=== PATIENT | female | born 1990 | race Caucasian/White ===

== ENCOUNTER → 2021-12-03 | Outpatient (CLI) | payer OTHER ==
--- NOTE | 2021-12-03 15:19 | US ---
EXAMINATION TYPE: US venous doppler duplex LE DATE OF EXAM: 12/03/2021 2:53 PM COMPARISON: NONE CLINICAL HISTORY: R60.0 Localized edema. patient, red, hot legs that are swollen, patient states body hurts all over SIDE PERFORMED: Bilateral TECHNIQUE: The lower extremity deep venous system is examined utilizing real time linear array sonog ananth with graded compression, doppler sonography and color-flow sonography. VESSELS IMAGED: Common Femoral Vein Deep Femoral Vein Greater Saphenous Vein * Femoral Vein Popliteal Vein Small Saphenous Vein * Proximal Calf Veins (* superficial vessels) Right Leg: Negative for DVT Left Leg: Negative for DVT IMPRESSION: 1. Bilateral lower extremity ultrasound negative for spondylosis.
--- NOTE | 2021-12-04 07:05 | CT ---
EXAMINATION TYPE: CT angio chest DATE OF EXAM: 12/03/2021 COMPARISON: NONE HISTORY: Dyspnea, edema in lower extremities CT DLP: 635 mGycm. Automated Exposure Control for Dose Reduction was Utilized. CONTRAST: CTA scan of the thorax is performed with IV Contrast, patient injected with 100 mL of Isovue 370, pul monary embolism protocol. MIP Images are created on CT scanner and reviewed. FINDINGS: LUNGS: The lungs are grossly clear, there is no concerning parenchymal mass or nodule identified. T here is no pleural effusion or pneumothorax seen. The tracheobronchial tree is patent. MEDIASTINUM: Suboptimal study with most dense contrast in the SVC. Opacified aorta without aneurysm o r dissection. Suboptimal bolus but no convincing CT evidence for acute pulmonary embolism. No cardiom egaly or pericardial effusion is seen. Abnormal thoracic adenopathy. Prominent bilateral low dense hi lar lymph nodes. For reference series 2.5 x 1.4 cm right hilar lymph node axial image 65. Prominent b ut subcentimeter prevascular lymph nodes. Soft tissue density anterior superior mediastinum is consis tent with residual thymus tissue. OTHER: No additional significant abnormality is seen. IMPRESSION: No CT evidence for acute pulmonary embolism. No significant acute or chronic pulmonary pa renchymal process. Bilateral hilar adenopathy is present. This is nonspecific finding may be seen in granulomatous diseases, sarcoidosis, etc. Correlate clinically.
== END | disposition home or self-care (01) ==
LOC: RADUSWWP 13:44
PROVIDERS: ATTEND Obstetrics & Gynecology
DX: R60.0 Localized edema (principal); R06.00 Dyspnea, unspecified
CPT/HCPCS: 93970; 71275; Q9967

== ENCOUNTER → 2022-01-02 | Outpatient (CLI) | payer OTHER ==
--- NOTE | 2022-01-02 15:31 | CT ---
EXAMINATION TYPE: CT abdomen pelvis wo con DATE OF EXAM: 01/02/2022 COMPARISON: None HISTORY: 31-year-old female R22.43, bilateral leg swelling CT DLP: 1159.7 mGycm. Automated exposure control for dose reduction was used. TECHNIQUE: Contiguous axial scanning of the abdomen and pelvis without IV contrast. Coronal and sagit joel reconstructions performed. FINDINGS: Heart normal size without pericardial effusion. Lung bases clear without pleural effusion. Liver enlarged at 21.4 cm craniocaudal. Otherwise, noncontrast appearance of the liver, gallbladder, adrenal glands, and pancreas show no gross abnormality. The spleen is borderline enlarged at 13.9 cm measured on axial series. Kidneys show no nephrolithiasis or hydronephrosis. No dilated small bowel, free fluid, or free air. No mesenteric or retroperitoneal lymphadenopathy. Appendix not clearly identified. Moderate stool burden. No pericolonic inflammatory change. Bladder urine distended. Uterus anteverted. A tampon is present. Both ovaries are visualized. No abno rmal fluid collection the pelvis or pelvic lymphadenopathy. Bones: No osseous destructive process. IMPRESSION: 1. Hepatomegaly (21.4 cm). Clinically correlate. 2. Moderate stool burden. 3. No discrete abnormality identified to account for the patient's bilateral lower extremity swellin g.
== END | disposition home or self-care (01) ==
LOC: RADCTMAIN 11:57
PROVIDERS: ATTEND Family Medicine
DX: R22.43 Localized swelling, mass and lump, lower limb, bilateral (principal)
CPT/HCPCS: 74176

== ENCOUNTER → 2022-01-16 | Outpatient (CLI) | payer OTHER ==
[2022-01-16 14:55] LABS: African American GFR (CKD) 126.9 (60.0-200.0); Albumin 4.1 g/dL (3.8-4.9); Albumin/Globulin Ratio 1.66 (1.60-3.17); Anion Gap 10.8 mmol/L (10.00-18.00); BUN/Creat Ratio 18.71 Ratio (12.00-20.00); Blood Urea Nitrogen 13.6 mg/dL (9.0-27.0); C Reactive Protein 0.7 mg/dL (0.00-0.80); Calcium 9.5 mg/dL (8.7-10.3); Globulin 2.5 g/dL (1.6-3.3); Non-African American GFR(CKD) 109.5 (60.0-200.0); Total Bilirubin 0.3 mg/dL (0.30-1.20); Total Protein 6.6 g/dL (6.2-8.2)
== END | disposition home or self-care (01) ==
LOC: LABWHC1 09:32
PROVIDERS: ATTEND Internal Medicine Critical Care Medicine
DX: D86.9 Sarcoidosis, unspecified (principal)
CPT/HCPCS: 36415; 80053; 82164; 85652; 86140

== ENCOUNTER 2022-01-17 16:38 | Emergency (ER) | payer OTHER ==
[2022-01-17 17:45] VITALS: BP 133/75; PULSE 59; RESP 16; TEMP 98.2
--- NOTE | 2022-01-17 17:49 | ED ---
General Adult HPI - General Chief complaint: Extremity Problem,Nontraumatic Stated complaint: L knee pain Time Seen by Provider: 01/17/22 17:45 Source: patient, RN notes reviewed, old records reviewed Mode of arrival: ambulatory Limitations: no limitations - History of Present Illness Initial comments: 31-year-old female presenting with left knee pain. She states the pain is been present for several weeks and has been bilateral mostly but over the past 3 days and worse in the left leg. She's had pain behind her left knee as well. No fever. No injury. - Related Data Previous Rx's Medication Instructions Recorded Clindamycin [Cleocin] 450 mg PO Q8H 10 Days #90 cap 12/04/21 Erythromycin Ophth Oint [Romycin 1 applic LEFT EYE QID #3.5 gm 12/04/21 Ophth Oint] Naproxen [EC-Naproxen] 500 mg PO BID PRN 10 Days #20 tab 01/17/22 Allergies Allergy/AdvReac Type Severity Reaction Status Date / Time Penicillins Allergy Unknown Verified 01/17/22 17:45 Review of Systems ROS Statement: Those systems with pertinent positive or pertinent negative responses have been documented in the HPI. ROS Other: All systems not noted in ROS Statement are negative. Past Medical History Past Medical History: No Reported History History of Any Multi-Drug Resistant Organisms: None Reported Past Surgical History: No Surgical Hx Reported Past Psychological History: No Psychological Hx Reported Smoking Status: Current every day smoker Past Alcohol Use History: None Reported Past Drug Use History: Opiates General Exam Limitations: no limitations General appearance: alert, in no apparent distress Head exam: Present: atraumatic, normocephalic Eye exam: Present: normal appearance, PERRL ENT exam: Present: normal exam Neck exam: Present: normal inspection Respiratory exam: Present: normal lung sounds bilaterally. Absent: respiratory distress Cardiovascular Exam: Present: regular rate, normal rhythm GI/Abdominal exam: Present: soft. Absent: distended, tenderness, guarding Extremities exam: Present: joint swelling (Small joint effusion on exam, no erythema, no warmth, normal range of motion.) Back exam: Present: normal inspection Neurological exam: Present: alert, oriented X3, CN II-XII intact, normal gait, motor sensory deficit Course Vital Signs 01/17/22 17:43 Temperature 98.2 F Pulse Rate 59 L Respiratory 16 Rate Blood Pressure 133/75 O2 Sat by Pulse 100 Oximetry Medical Decision Making - Medical Decision Making 31-year-old female with left knee pain. She had some bilateral pain but definitely worse on the left. X-ray negative for fracture dislocation, I did p erform an ultrasound because there was some pain behind the knee. This is negative for DVT. Patient is being worked up as an outpatient for multiple issues. She had previous laboratory testing which showed a mildly elevated ESR. I did discuss the possibility of further workup as an outpatient. She states that naproxen had worked well for her pain. I will prescribe naproxen at this time. Return parameters were discussed. Disposition Clinical Impression: Knee pain, left Disposition: HOME SELF-CARE Condition: Good Instructions (If sedation given, give patient instructions): Knee Pain (ED) Prescriptions: Naproxen [EC-Naproxen] 500 mg PO BID PRN 10 Days #20 tab PRN Reason: Pain Is patient prescribed a controlled substance at d/c from ED?: No Referrals: Mercy Prater MD [Primary Care Provider] - 1-2 days Juany Hill MD [STAFF PHYSICIAN] - 1-2 days Time of Disposition: 19:25
--- NOTE | 2022-01-17 18:14 | XR ---
EXAMINATION TYPE: XR knee complete LT DATE OF EXAM: 01/17/2022 COMPARISON: NONE HISTORY: Pain and swelling TECHNIQUE: 3 views FINDINGS: I see no fracture nor dislocation. Joint spaces are normal. No sign of knee joint effusion IMPRESSION: Negative left knee exam. No fracture.
--- NOTE | 2022-01-17 18:46 | US ---
EXAMINATION TYPE: US venous doppler duplex LE LT DATE OF EXAM: 01/17/2022 6:35 PM COMPARISON: NONE CLINICAL HISTORY: pain/swelling. pain and edema left leg for 3 months. pain left knee for a few days SIDE PERFORMED: left TECHNIQUE: The lower extremity deep venous system is examined utilizing real time linear array sonog ananth with graded compression, doppler sonography and color-flow sonography. VESSELS IMAGED: Common Femoral Vein Deep Femoral Vein Greater Saphenous Vein * Femoral Vein Popliteal Vein Small Saphenous Vein * Proximal Calf Veins (* superficial vessels) Left Leg: no evidence of DVT IMPRESSION: No site of the vein thrombosis in the left leg.
== END 2022-01-17 19:40 | disposition home or self-care (01) ==
LOC: EC 16:38
DX: M25.562 Pain in left knee (principal); F17.200 Nicotine dependence, unspecified, uncomplicated; Z88.0 Allergy status to penicillin
CPT/HCPCS: 99284

== ENCOUNTER → 2022-02-24 | Outpatient (CLI) | payer OTHER ==
--- NOTE | 2022-02-24 17:35 | CA ---
Transthoracic Echo Report Name: Sophia Denis Age: 31 Gender: F : 1990 Exam Date: 02/24/2022 15:03 Exam Location: [facility] Ht (in): 63 Wt (lb): 220 Ordering Physician: Mercy Prater MD Attending/Referring Phys: Flight Mechanic Irma Jenkins RDCS Procedure CPT: Indications: R22.43 SWELLING, MASS AND LUMP, LOWER LIMB Cardiac Hx: Technical Quality: Fair Contrast 1: Total Dose (mL): Contrast 2: Total Dose (mL): MEASUREMENTS (Male / Female) Normal Values 2D ECHO LV Diastolic Diameter PLAX 5.0 cm 4.2 - 5.9 / 3.9 - 5.3 cm LV Systolic Diameter PLAX 2.9 cm IVS Diastolic Thickness 1.2 cm 0.6 - 1.0 / 0.6 - 0.9 cm LVPW Diastolic Thickness 1.2 cm 0.6 - 1.0 / 0.6 - 0.9 cm LV Relative Wall Thickness 0.5 RV Internal Dim ED PLAX 3.6 cm LA Volume 60.9 cm??? 18 - 58 / 22 - 52 cm??? M-MODE Aortic Root Diameter MM 2.8 cm LA Systolic Diameter MM 4.1 cm LA Ao Ratio MM 1.4 AV Cusp Separation MM 2.0 cm DOPPLER AV Peak Velocity 155.5 cm/s AV Peak Gradient 9.7 mmHg LVOT Peak Velocity 101.2 cm/s LVOT Peak Gradient 4.1 mmHg MV Area PHT 3.3 cm??? Mitral E Point Velocity 119.8 cm/s Mitral A Point Velocity 91.2 cm/s Mitral E to A Ratio 1.3 MV Deceleration Time 231.9 ms MV E' Velocity 9.6 cm/s Mitral E to MV E' Ratio 12.4 FINDINGS Left Ventricle Mildly increased left ventricular wall thickness. Normal left ventricular systolic function with no obvious regional wall motion abnormalities. Left ventricular ejection fraction is estimated at 55-60 %. Normal left ventricular diastolic filling pattern. Right Ventricle Normal right ventricular size and function. Right ventricular systolic pressure within normal limits. Right Atrium Normal right atrial size. Left Atrium Left atrial size at the upper limits of normal. No evidence for an atrial septal defect. Mitral Valve Structurally normal mitral valve. No mitral stenosis, regurgitation or prolapse. Aortic Valve No aortic valve stenosis or regurgitation. Tricuspid Valve Structurally normal tricuspid valve. Mild tricuspid regurgitation. Pulmonic Valve Trace pulmonic regurgitation. Pericardium No pericardial effusion. Aorta Normal size aortic root and proximal ascending aorta. CONCLUSIONS Normal LV systolic function Previewed by: Dr. Bruce Espinoza MD (Electronically Signed) Final Date: 24 February 2022 17:34
== END | disposition home or self-care (01) ==
LOC: RADECHMAIN 14:50
PROVIDERS: ATTEND Family Medicine
DX: R22.43 Localized swelling, mass and lump, lower limb, bilateral (principal)
CPT/HCPCS: 93306

== ENCOUNTER 2023-10-12 17:54 | Emergency (ER) | payer OTHER ==
--- NOTE | 2023-10-12 18:40 | ED ---
General Adult HPI - General Chief complaint: Vaginal Bleeding Stated complaint: 6-8wk Preg, Vaginal Bleeding Time Seen by Provider: 10/12/23 18:37 Source: patient Mode of arrival: ambulatory Limitations: no limitations - History of Present Illness Initial comments: Quick note: 33-year-old G3, P2 female presents to the emergency department for evaluation of vaginal bleeding in . Patient states that she believes she is around 6 to 8 weeks . Last menstrual period 09-01-2023. She notes that she had passed a blood clot yesterday and the bleeding has been lessened since then. She denies any abdominal pain or cramping. - Related Data Previous Rx's Medication Instructions Recorded Clindamycin [Cleocin] 450 mg PO Q8H 10 Days #90 cap 12/04/21 Erythromycin Ophth Oint [Romycin 1 applic LEFT EYE QID #3.5 gm 12/04/21 Ophth Oint] Naproxen [EC-Naproxen] 500 mg PO BID PRN 10 Days #20 tab 01/17/22 Allergies Allergy/AdvReac Type Severity Reaction Status Date / Time Penicillins Allergy Unknown Verified 01/17/22 17:45 Review of Systems ROS Statement: Those systems with pertinent positive or pertinent negative responses have been documented in the HPI. ROS Other: All systems not noted in ROS Statement are negative. Past Medical History Past Medical History: No Reported History History of Any Multi-Drug Resistant Organisms: None Reported Past Surgical History: No Surgical Hx Reported Past Psychological History: No Psychological Hx Reported Smoking Status: Current every day smoker Past Alcohol Use History: None Reported Past Drug Use History: Opiates General Exam - General Exam Comments Initial Comments: Visual Physical Exam Vital signs reviewed General: Well-appearing, nontoxic, no acute distress. Head: Normocephalic, atraumatic Eyes: PERRLA, EOMI ENT: Airway patent Chest: Nonlabored breathing Skin: No visual rash, normal skin tone Neuro: Alert and oriented 3 Musculoskeletal: No gross abnormalities Limitations: no limitations Course Vital Signs 10/12/23 18:29 Temperature 98.1 F Pulse Rate 63 Respiratory 20 Rate Blood Pressure 150/87 O2 Sat by Pulse 100 Oximetry Medical Decision Making - Medical Decision Making Quick note preformed and electronically by Ny Jones PA-C Patient left AMA from the waiting room - Lab Data Result diagrams: 10/12/23 18:50 10/12/23 18:50 Lab Results 10/12/23 10/12/23 10/12/23 Range/Units 18:50 18:50 18:50 WBC 8.1 (3.8-10.6) k/uL RBC 4.30 (3.80-5.40) m/uL Hgb 11.8 (11.4-16.0) gm/dL Hct 35.2 (34.0-46.0) % MCV 81.8 (80.0-100.0) fL MCH 27.4 (25.0-35.0) pg MCHC 33.5 (31.0-37.0) g/dL RDW 14.2 (11.5-15.5) % Plt Count 328 (150-450) k/uL MPV 7.2 Neutrophils % 56 % Lymphocytes % 35 % Monocytes % 6 % Eosinophils % 1 % Basophils % 1 % Neutrophils # 4.6 (1.3-7.7) k/uL Lymphocytes # 2.8 (1.0-4.8) k/uL Monocytes # 0.5 (0-1.0) k/uL Eosinophils # 0.1 (0-0.7) k/uL Basophils # 0.1 (0-0.2) k/uL Sodium 139 (137-145) mmol/L Potassium 4.1 (3.5-5.1) mmol/L Chloride 106 (98-107) mmol/L Carbon Dioxide 23 (22-30) mmol/L Anion Gap 10 mmol/L BUN 10 (7-17) mg/dL Creatinine 0.66 (0.52-1.04) mg/dL Est GFR (CKD-EPI)AfAm >90 (>60 ml/min/1.73 sqM) Est GFR (CKD-EPI)NonAf >90 (>60 ml/min/1.73 sqM) Glucose 73 L (74-99) mg/dL Calcium 9.2 (8.4-10.2) mg/dL Total Bilirubin 0.6 (0.2-1.3) mg/dL AST 17 (14-36) U/L ALT 8 (4-34) U/L Alkaline Phosphatase 63 (38-126) U/L Total Protein 7.1 (6.3-8.2) g/dL Albumin 4.2 (3.5-5.0) g/dL HCG, Quant 22940.0 mIU/mL Urine Color Urine Appearance (Clear) Urine pH (5.0-8.0) Ur Specific [place] (1.001-1.035) Urine Protein (Negative) Urine Glucose (UA) (Negative) Urine Ketones (Negative) Urine Blood (Negative) Urine Nitrite (Negative) Urine Bilirubin (Negative) Urine Urobilinogen (<2.0) mg/dL Ur Leukocyte Esterase (Negative) Urine RBC (0-5) /hpf Urine WBC (0-5) /hpf Ur Squamous Epith Cells (0-4) /hpf Urine Bacteria (None) /hpf Urine Mucus (None) /hpf Blood Type A Positive Blood Type Confirm Blood Type Recheck No Previous Record Bld Type Recheck Status CABO Indicated 10/12/23 10/12/23 Range/Units 19:00 20:56 WBC (3.8-10.6) k/uL RBC (3.80-5.40) m/uL Hgb (11.4-16.0) gm/dL Hct (34.0-46.0) % MCV (80.0-100.0) fL MCH (25.0-35.0) pg MCHC (31.0-37.0) g/dL RDW (11.5-15.5) % Plt Count (150-450) k/uL MPV Neutrophils % % Lymphocytes % % Monocytes % % Eosinophils % % Basophils % % Neutrophils # (1.3-7.7) k/uL Lymphocytes # (1.0-4.8) k/uL Monocytes # (0-1.0) k/uL Eosinophils # (0-0.7) k/uL Basophils # (0-0.2) k/uL Sodium (137-145) mmol/L Potassium (3.5-5.1) mmol/L Chloride (98-107) mmol/L Carbon Dioxide (22-30) mmol/L Anion Gap mmol/L BUN (7-17) mg/dL Creatinine (0.52-1.04) mg/dL Est GFR (CKD-EPI)AfAm (>60 ml/min/1.73 sqM) Est GFR (CKD-EPI)NonAf (>60 ml/min/1.73 sqM) Glucose (74-99) mg/dL Calcium (8.4-10.2) mg/dL Total Bilirubin (0.2-1.3) mg/dL AST (14-36) U/L ALT (4-34) U/L Alkaline Phosphatase (38-126) U/L Total Protein (6.3-8.2) g/dL Albumin (3.5-5.0) g/dL HCG, Quant mIU/mL Urine Color Yellow Urine Appearance Cloudy H (Clear) Urine pH 5.5 (5.0-8.0) Ur Specific [place] 1.032 (1.001-1.035) Urine Protein Trace H (Negative) Urine Glucose (UA) Negative (Negative) Urine Ketones Negative (Negative) Urine Blood Large H (Negative) Urine Nitrite Negative (Negative) Urine Bilirubin Negative (Negative) Urine Urobilinogen <2.0 (<2.0) mg/dL Ur Leukocyte Esterase Large H (Negative) Urine RBC 3 (0-5) /hpf Urine WBC 15 H (0-5) /hpf Ur Squamous Epith Cells 19 H (0-4) /hpf Urine Bacteria Rare H (None) /hpf Urine Mucus Moderate H (None) /hpf Blood Type Blood Type Confirm A Positive Blood Type Recheck Bld Type Recheck Status Disposition Clinical Impression: Left against medical advice Disposition: LEFT AGAINST MEDICAL ADVICE Is patient prescribed a controlled substance at d/c from ED?: No Referrals: Mercy Prater MD [Primary Care Provider] - 1-2 days
[2023-10-12 18:46] VITALS: BP 150/87; PULSE 63; RESP 20; TEMP 98.1
[2023-10-12 19:17] LABS: Basophils # (A) 0.1 k/uL (0-0.2); Basophils % (A) 1 %; Eosinophils # (A) 0.1 k/uL (0-0.7); Eosinophils % (A) 1 %; HCT 35.2 % (34.0-46.0); HGB 11.8 gm/dL (11.4-16.0); Lymphocytes # (A) 2.8 k/uL (1.0-4.8); Lymphocytes % (A) 35 %; MCH 27.4 pg (25.0-35.0); MCHC 33.5 g/dL (31.0-37.0); MCV 81.8 fL (80.0-100.0); Mean Platelet Volume 7.2; Monocytes # (A) 0.5 k/uL (0-1.0); Monocytes % (A) 6 %; Neutrophils # (A) 4.6 k/uL (1.3-7.7); Neutrophils % (A) 56 %; Platelet Count 328 k/uL (150-450); RDW 14.2 % (11.5-15.5); WBC 8.1 k/uL (3.8-10.6)
[2023-10-12 20:00] LABS: ALT 8 U/L (4-34); AST 17 U/L (14-36); African American GFR (CKD) >90 (>60 ml/min/1.73 sqM); Albumin 4.2 g/dL (3.5-5.0); Alkaline Phosphatase 63 U/L (38-126); Anion Gap 10 mmol/L; Blood Urea Nitrogen 10 mg/dL (7-17); Calcium 9.2 mg/dL (8.4-10.2); Carbon Dioxide 23 mmol/L (22-30); Chloride 106 mmol/L (98-107); Glucose 73 mg/dL (74-99); Non-African American GFR(CKD) >90 (>60 ml/min/1.73 sqM); Potassium 4.1 mmol/L (3.5-5.1); Sodium 139 mmol/L (137-145); Total Bilirubin 0.6 mg/dL (0.2-1.3); Total Protein 7.1 g/dL (6.3-8.2)
--- NOTE | 2023-10-12 20:42 | US ---
EXAMINATION TYPE: Transabdominal DATE OF EXAM: 10/12/2023 7:21 PM COMPARISON: NONE CLINICAL INDICATION: Female, 33 years old with history of bleeding, 7 weeks; A1. Hx of ectopic ye ars ago. Pt states she passed a clot today EXAM PERFORMED: Transabdominal (TA) EXAM MEASUREMENTS: GESTATIONAL AGE / DATING Physician Established: Not yet established Dates by LMP: (5 weeks/1 days) EDC: 06/12/24 Dates by First Scan: No previous this is first scan Dates by Current Scan for: (6 weeks/1 days) EDC: 06/05/24 MATERNAL ANATOMY Uterus: 10.4 x 6.9 x 5.3cm Right Ovary: 3.8 x 2.6 x 2.9cm Left Ovary: 2.4 x 2.4 x 2.2cm Post CDS / Adnexa: wnl Presence of free fluid: No Presence of corpus luteal cyst: Yes in rt ov measuring 2.5 x 2.6 x 2.2cm Presence of subchorionic bleed: No GESTATION / SURVEY CRL: 0.44cm (6 weeks/1 days) MSD: 1.75cm (6 weeks/1 days) Yolk Sac (normal less than 6mm): 3.2mm Heart Rate: 120 bpm Rhythm: Normal IUP: Viable IUP Date of LMP: Pt states around 09/06/23 Beta HcG (if available): Pending IMPRESSION: Single live intrauterine gestation ultrasound age 6 weeks 1 day.
[2023-10-12 21:10] LABS: Appearance,Urine Cloudy (Clear); Bacteria,Urine Rare /hpf; Bilirubin,Urine Negative (Negative); Blood,Urine Large (Negative); Color,Urine Yellow; Glucose,Urine (UA) Negative (Negative); Ketones,Urine Negative (Negative); Leukocyte Esterase,Urine Large (Negative); Mucus,Urine Moderate /hpf; Nitrite,Urine Negative (Negative); PH, Urine 5.5 (5.0-8.0); Protein,Urine Trace (Negative); RBC,Urine 3 /hpf (0-5); Specific Gravity,Urine 1.032 (1.001-1.035); Squamous Epithelial Cell,Urine 19 /hpf (0-4); Urobilinogen,Urine <2.0 mg/dL (<2.0); WBC,Urine 15 /hpf (0-5)
== END 2023-10-12 21:39 | disposition left against medical advice (07) ==
LOC: EC 17:54
DX: O20.9 Hemorrhage in early pregnancy, unspecified (principal); O23.41 Unspecified infection of urinary tract in pregnancy, first trimester; B96.20 Unspecified Escherichia coli [E. coli] as the cause of diseases classified elsewhere; B96.1 Klebsiella pneumoniae [K. pneumoniae] as the cause of diseases classified elsewhere; O99.331 Smoking (tobacco) complicating pregnancy, first trimester; F17.200 Nicotine dependence, unspecified, uncomplicated; Z53.29 Procedure and treatment not carried out because of patient's decision for other reasons; Z3A.01 Less than 8 weeks gestation of pregnancy; Z88.0 Allergy status to penicillin
CPT/HCPCS: 36415; 76801; 80053; 81001; 84702; 85025; 86900; 86901; 87077; 87086; 87186; 99284

== ENCOUNTER 2023-10-17 18:15 | Emergency (ER) | payer OTHER ==
[2023-10-17 18:53] VITALS: TEMP 98.4
[2023-10-17] MEDS: AZITHROMYCIN 250 MG TAB PO STA (19:28)
[2023-10-17] MEDS: metroNIDAZOLE 500 MG TAB PO STA (19:29)
[2023-10-17] MEDS: cefTRIAXone 1,000 MG VIAL (IM USE) IM STA (19:30)
--- NOTE | 2023-10-17 20:01 | ED ---
Female Urogenital HPI - General Chief complaint: Vaginal Bleeding Stated complaint: pos miscarriage Time Seen by Provider: 10/17/23 18:31 Source: patient, RN notes reviewed, old records reviewed Mode of arrival: ambulatory Limitations: no limitations - History of Present Illness Initial comments: 33-year-old female presents emergency department with chief complaint of possible miscarriage. She states she was seen here couple days ago states that she was having some bleeding states that she was here for testing but had to leave due to family issues. Patient states that she is concerned she may be having miscarriage she also states she has some discharge. Patient states she regularly has bacterial vaginosis and UTIs. Patient is requesting prophylactic treatment. Patient denies any fevers or chills no flank pain she states her bleeding has subsided. - Related Data Previous Rx's Medication Instructions Recorded Clindamycin [Cleocin] 450 mg PO Q8H 10 Days #90 cap 12/04/21 Erythromycin Ophth Oint [Romycin 1 applic LEFT EYE QID #3.5 gm 12/04/21 Ophth Oint] Naproxen [EC-Naproxen] 500 mg PO BID PRN 10 Days #20 tab 01/17/22 Nitrofurantoin Monohyd/M-Cryst 100 mg PO Q12HR #14 cap 10/17/23 [Macrobid] Allergies Allergy/AdvReac Type Severity Reaction Status Date / Time Penicillins Allergy Unknown Verified 10/17/23 18:30 Review of Systems ROS Statement: Those systems with pertinent positive or pertinent negative responses have been documented in the HPI. ROS Other: All systems not noted in ROS Statement are negative. Past Medical History Past Medical History: No Reported History History of Any Multi-Drug Resistant Organisms: None Reported Past Surgical History: No Surgical Hx Reported Past Psychological History: No Psychological Hx Reported Smoking Status: Current every day smoker Past Alcohol Use History: None Reported Past Drug Use History: Opiates General Exam Limitations: no limitations General appearance: alert, in no apparent distress Head exam: Present: atraumatic, normocephalic, normal inspection Respiratory exam: Present: normal lung sounds bilaterally. Absent: respiratory distress, wheezes, rales, rhonchi, stridor Cardiovascular Exam: Present: regular rate, normal rhythm, normal heart sounds. Absent: systolic murmur, diastolic murmur, rubs, gallop, clicks GI/Abdominal exam: Present: soft, normal bowel sounds. Absent: distended, tenderness, guarding, rebound, rigid Course Vital Signs 10/17/23 10/17/23 18:28 20:33 Temperature 98.4 F Pulse Rate 61 77 Respiratory 18 16 Rate Blood Pressure 149/79 140/75 O2 Sat by Pulse 99 99 Oximetry Medical Decision Making - Medical Decision Making Was pt. sent in by a medical professional or institution (, PA, SAMPLER AND TEST PREPARER, urgent care, hospital, or skilled nursing...) When possible be specific @ -No Did you speak to anyone other than the patient for history (EMS, parent, family, police, friend...)? What history was obtained from this source @ -No Did you review nursing and triage notes (agree or disagree)? Why? @ -I reviewed and agree with nursing and triage notes Were old charts reviewed (outside hosp., previous admission, EMS record, old EKG, old radiological studies, urgent care reports/EKG's, skilled nursing records)? Report findings @ -Reviewed prior laboratory studies, ultrasound Differential Diagnosis (chest pain, altered mental status, abdominal pain women, abdominal pain men, vaginal bleeding, weakness, fever, dyspnea, syncope, headache, dizziness, GI bleed, back pain, seizure, CVA, palpatations, mental health, musculoskeletal)? @ -Differential Vaginal Bleeding: Spontaneous , threatened , molar , ectopic , bloody show, incompetent cervix, abruptioplacenta, placenta previa, uterine rupture, dysfunctional uterine bleeding, hemorrhage, uterine fibroids, this is not meant to be an all-inclusive list. EKG interpreted by me (3pts min.). @ -[None X-rays interpreted by me (1pt min.). @ -None done CT interpreted by me (1pt min.). @ -None done U/S interpreted by me (1pt. min.). @ -None done What testing was considered but not performed or refused? (CT, X-rays, U/S, lab s)? Why? @ -[Consider labs, ultrasound though this was completed a few days ago What meds were considered but not given or refused? Why? @ -None Did you discuss the management of the patient with other professionals (professionals i.e. , DANNY, SAMPLER AND TEST PREPARER, lab, RT, psych nurse, rn social services, cooking casing and drying supervisor, teacher, bsa officer, patient case coordinator)? Give summary @ -No Was smoking cessation discussed for >3mins.? @ -No Was critical care preformed (if so, how long)? @ -No Were there social determinants of health that impacted care today? How? (Homelessness, low income, unemployed, alcoholism, drug addiction, valentino sportation, low edu. Level, literacy, decrease access to med. care, prison, rehab)? @ -No Was there de-escalation of care discussed even if they declined (Discuss DNR or withdrawal of care, Hospice)? DNR status @ -No What co-morbidities impacted this encounter? (DM, HTN, Smoking, COPD, CAD, Cancer, CVA, ARF, Chemo, Hep., AIDS, mental health diagnosis, sleep apnea, morbid obesity)? @ -None Was patient admitted / discharged? Hospital course, mention meds given and route, prescriptions, significant lab abnormalities, going to OR and other pertinent info. @ -Discharge patient was prophylactic treated for STDs urine culture showed E. coli, Klebsiella was started on oral antibiotics. Patient will have repeat hCG she states that she cannot wait for results will look it up on her [facility] chart. Patient offered pelvic exam but felt comfortable with urine test and prophylactic treatment. Undiagnosed new problem with uncertain prognosis? @ -No Drug Therapy requiring intensive monitoring for toxicity (Heparin, Nitro, Insulin, Cardizem)? @ -No Were any procedures done? @ -No Diagnosis/symptom? @ -Threatened miscarriage, UTI Acute, or Chronic, or Acute on Chronic? @ -Acute Uncomplicated (without systemic symptoms) or Complicated (systemic symptoms)? @ -Uncomplicated Side effects of treatment? @ -No Exacerbation, Progression, or Severe Exacerbation? @ -No Poses a threat to life or bodily function? How? (Chest pain, [place], [place], pneumonia, PE, COPD, DKA, ARF, appy, cholecystitis, CVA, Diverticulitis, Homicidal, Suicidal, threat to staff... and all critical care pts) @ -No Disposition Clinical Impression: Threatened miscarriage, UTI (urinary tract infection) Disposition: HOME SELF-CARE Condition: Stable Additional Instructions: Please return to the Emergency Department if symptoms worsen or any other concerns. Prescriptions: Nitrofurantoin Monohyd/M-Cryst [Macrobid] 100 mg PO Q12HR #14 cap Is patient prescribed a controlled substance at d/c from ED?: No Referrals: None,Stated [Primary Care Provider] - 1-2 days Time of Disposition: 20:01
[2023-10-17 21:08] VITALS: BP 140/75; PULSE 77; RESP 16
[2023-10-18 15:00] LABS: C. trachomatis,PCR Negative (Negative)
[2023-10-18 15:05] LABS: N. gonorrhoeae,PCR Negative (Negative)
== END 2023-10-17 20:05 | disposition home or self-care (01) ==
LOC: EC 18:15
DX: O20.0 Threatened abortion (principal); N39.0 Urinary tract infection, site not specified; F17.200 Nicotine dependence, unspecified, uncomplicated; Z88.0 Allergy status to penicillin
CPT/HCPCS: 36415; 84702; 87491; 87591; 99284; 96372; J0696

== ENCOUNTER → 2023-10-20 | Outpatient (CLI) | payer OTHER | END | disposition home or self-care (01) | LOC: LABWHC1 13:10 | PROVIDERS: ATTEND Physician Assistant | DX: O20.0 Threatened abortion (principal); Z3A.00 Weeks of gestation of pregnancy not specified | CPT/HCPCS: 36415; 84702 ==

== ENCOUNTER 2023-11-10 19:10 | Emergency (ER) | payer OTHER ==
[2023-11-10 19:32] VITALS: TEMP 97.8
--- NOTE | 2023-11-10 19:55 | ED ---
Female Urogenital HPI - General Chief complaint: Vaginal Bleeding Stated complaint: Vaginal bleeding Time Seen by Provider: 11/10/23 19:49 Source: patient, RN notes reviewed Mode of arrival: ambulatory Limitations: no limitations - History of Present Illness Initial comments: 33-year-old female presented to the ED with chief complaint of foul order. Pat damián reports over the past few weeks has been worried as she thinks she may be having a miscarriage due to continuously decreasing hCG levels. Currently, denies abdominal pain or vaginal bleeding however she reports a few days ago she did have an episode of heavy vaginal bleeding which is now resolved. Since then, she reports she has developed a foul vaginal odor. Denies fever. Denies vaginal discharge. She does note history of BV in the past and reports that she may be having this again and is concerned and would like treatment for this. Last Menstrual Period: 11/06/23 - Related Data Previous Rx's Medication Instructions Recorded Clindamycin [Cleocin] 450 mg PO Q8H 10 Days #90 cap 12/04/21 Erythromycin Ophth Oint [Romycin 1 applic LEFT EYE QID #3.5 gm 12/04/21 Ophth Oint] Naproxen [EC-Naproxen] 500 mg PO BID PRN 10 Days #20 tab 01/17/22 Nitrofurantoin Monohyd/M-Cryst 100 mg PO Q12HR #14 cap 10/17/23 [Macrobid] metroNIDAZOLE 0.75% VAGINAL 1 applic VAGINAL HS #70 gm 11/11/23 [Metrogel Vaginal] Allergies Allergy/AdvReac Type Severity Reaction Status Date / Time Penicillins Allergy Unknown Verified 11/10/23 19:24 Review of Systems ROS Statement: Those systems with pertinent positive or pertinent negative responses have been documented in the HPI. ROS Other: All systems not noted in ROS Statement are negative. Past Medical History Past Medical History: No Reported History History of Any Multi-Drug Resistant Organisms: None Reported Past Surgical History: No Surgical Hx Reported Past Psychological History: No Psychological Hx Reported Smoking Status: Current every day smoker Past Alcohol Use History: None Reported Past Drug Use History: Opiates General Exam - General Exam Comments Initial Comments: Visual Physical Exam Vital signs reviewed General: Well-appearing, nontoxic, no acute distress. Head: Normocephalic, atraumatic Eyes: PERRLA, EOMI ENT: Airway patent Chest: Nonlabored breathing Skin: No visual rash, normal skin tone Neuro: Alert and oriented 3 Musculoskeletal: No gross abnormalities Limitations: no limitations General appearance: alert, in no apparent distress Eye exam: Present: normal appearance Neck exam: Present: normal inspection Respiratory exam: Present: normal lung sounds bilaterally Cardiovascular Exam: Present: regular rate GI/Abdominal exam: Present: soft External exam: Present: other (Deferred exam) Neurological exam: Present: alert, oriented X3 Skin exam: Present: warm, dry Course Vital Signs 11/10/23 11/10/23 19:24 23:17 Temperature 97.8 F Pulse Rate 62 69 Respiratory 16 18 Rate Blood Pressure 178/82 162/92 O2 Sat by Pulse 99 98 Oximetry Medical Decision Making - Medical Decision Making Quicknote portion performed. Signed Davonte Humphrey PA-C Was pt. sent in by a medical professional or institution (DANNY John, DIRECTOR OF RESEARCH AND DEVELOPMENT, urgent care, hospital, or intermediate...) When possible be specific @ -No Did you speak to anyone other than the patient for history (EMS, parent, family, police, friend...)? What history was obtained from this source @ -No Did you review nursing and triage notes (agree or disagree)? Why? @ -I reviewed and agree with nursing and triage notes Were old charts reviewed (outside hosp., previous admission, EMS record, old EKG, old radiological studies, urgent care reports/EKG's, intermediate records)? Report findings @ -Reviewed prior charts. For further details please see MDM. Differential Diagnosis (chest pain, altered mental status, abdominal pain women, abdominal pain men, vaginal bleeding, weakness, fever, dyspnea, syncope, headache, dizziness, GI bleed, back pain, seizure, CVA, palpatations, mental health, musculoskeletal)? @ -Differential Vaginal Bleeding: Spontaneous , threatened , molar , ectopic , bloody show, incompetent cervix, abruptioplacenta, placenta previa, uterine rupture, dysfunctional uterine bleeding, hemorrhage, uterine fibroids, this is not meant to be an all-inclusive list. EKG interpreted by me (3pts min.). @ -None X-rays interpreted by me (1pt min.). @ -None done CT interpreted by me (1pt min.). @ -None done U/S interpreted by me (1pt. min.). @ -Ultrasound interpreted by me which does show single live IUP at 11 weeks. What testing was considered but not performed or refused? (CT, X-rays, U/S, labs)? Why? @ -None What meds were considered but not given or refused? Why? @ -None Did you discuss the management of the patient with other professionals (professionals i.e. Dr., PA, DIRECTOR OF RESEARCH AND DEVELOPMENT, lab, RT, psych nurse, delinquency prevention social worker, gas distribution plant operator, teacher, railway patrol officer, rehabilitation caseworker)? Give summary @ -No Was smoking cessation discussed for >3mins.? @ -No Was critical care preformed (if so, how long)? @ -No Were there social determinants of health that impacted care today? How? (Homelessness, low income, unemployed, alcoholism, drug addiction, transportation, low edu. Level, literacy, decrease access to med. care, custodial, rehab)? @ -No Was there de-escalation of care discussed even if they declined (Discuss DNR or withdrawal of care, Hospice)? DNR status @ -No What co-morbidities impacted this encounter? (DM, HTN, Smoking, COPD, CAD, Cancer, CVA, ARF, Chemo, Hep., AIDS, mental health diagnosis, sleep apnea, mo rbid obesity)? @ -None Was patient admitted / discharged? Hospital course, mention meds given and r oute, prescriptions, significant lab abnormalities, going to OR and other pertinent info. @ -Discharge 33-year-old female presented to the ED with complaints of foul vaginal odor over the last few days. Also notes that she is worried she may be miscarrying as patient has had hCG levels which have been trending down. Laboratory studies reviewed. hCG is decreased from prior however ultrasound at this time does show single live IUP. Unfortunately, no testing for this facility at [facility]. Patient did note episode of vaginal bleeding this past weekend. Therefore type and screen was performed to check Rh status. Patient would not like to wait for this test and would like to be discharged home. Patient is aware of risks. She also would not like to provide us a urine sample at this time. She reports that she will closely follow-up with OB. Patient provided intravaginal metronidazole for BV. Discharged home in stable condition. Discussed return precautions patient who verbalized agreement. Undiagnosed new problem with uncertain prognosis? @ -No Drug Therapy requiring intensive monitoring for toxicity (Heparin, Nitro, Insulin, Cardizem)? @ -No Were any procedures done? @ -No Diagnosis/symptom? @ -Bacterial vaginosis, single live IUP Acute, or Chronic, or Acute on Chronic? @ -Acute Uncomplicated (without systemic symptoms) or Complicated (systemic symptoms)? @ -Uncomplicated Side effects of treatment? @ -No Exacerbation, Progression, or Severe Exacerbation? @ -No Poses a threat to life or bodily function? How? (Chest pain, [place], [place], pneumonia, PE, COPD, DKA, ARF, appy, cholecystitis, CVA, Diverticulitis, Homicidal, Suicidal, threat to staff... and all critical care pts) @ -No - Lab Data Result diagrams: 11/10/23 22:40 11/10/23 22:40 Lab Results 11/10/23 11/10/23 Range/Units 22:40 22:40 WBC 8.8 (3.8-10.6) k/uL RBC 4.65 (3.80-5.40) m/uL Hgb 12.3 (11.4-16.0) gm/dL Hct 38.3 (34.0-46.0) % MCV 82.4 (80.0-100.0) fL MCH 26.5 (25.0-35.0) pg MCHC 32.2 (31.0-37.0) g/dL RDW 14.9 (11.5-15.5) % Plt Count 274 (150-450) k/uL MPV 7.4 Neutrophils % 60 % Lymphocytes % 33 % Monocytes % 4 % Eosinophils % 1 % Basophils % 1 % Neutrophils # 5.3 (1.3-7.7) k/uL Lymphocytes # 2.9 (1.0-4.8) k/uL Monocytes # 0.4 (0-1.0) k/uL Eosinophils # 0.1 (0-0.7) k/uL Basophils # 0.1 (0-0.2) k/uL Sodium 136 L (137-145) mmol/L Potassium 5.0 (3.5-5.1) mmol/L Chloride 107 (98-107) mmol/L Carbon Dioxide 19 L (22-30) mmol/L Anion Gap 10 mmol/L BUN 12 (7-17) mg/dL Creatinine 0.59 (0.52-1.04) mg/dL Est GFR (CKD-EPI)AfAm >90 (>60 ml/min/1.73 sqM) Est GFR (CKD-EPI)NonAf >90 (>60 ml/min/1.73 sqM) Glucose 91 (74-99) mg/dL Calcium 9.7 (8.4-10.2) mg/dL Total Bilirubin 0.9 (0.2-1.3) mg/dL AST 25 (14-36) U/L ALT 8 (4-34) U/L Alkaline Phosphatase 58 (38-126) U/L Total Protein 7.3 (6.3-8.2) g/dL Albumin 4.3 (3.5-5.0) g/dL HCG, Quant 75545.6 mIU/mL Disposition Clinical Impression: , Bacterial vaginosis Disposition: HOME SELF-CARE Condition: Good Additional Instructions: Please return to the Emergency Department if symptoms worsen or any other concerns. Please follow-up with PRINTED CIRCUIT DESIGNER. Prescriptions: metroNIDAZOLE 0.75% VAGINAL [Metrogel Vaginal] 1 applic VAGINAL HS #70 gm Is patient prescribed a controlled substance at d/c from ED?: No Referrals: None,Stated [Primary Care Provider] - 1-2 days
--- NOTE | 2023-11-10 21:50 | US ---
EXAMINATION TYPE: Transabdominal DATE OF EXAM: 11/10/2023 8:45 PM COMPARISON: Ultrasound 10/12/2023 CLINICAL INDICATION: Female, 33 years old with history of evaluate for retained products; Pt bleeding on and off for a month. Pt states her hcg levels have dropped slightly and her dr told her she was h aving a miscarriage. EXAM PERFORMED: Transabdominal (TA) ultrasound of the pelvis. Color Doppler used as needed. EXAM MEASUREMENTS: GESTATIONAL AGE / DATING Physician Established: Not yet established Dates by First Scan: (10 weeks/2 days) EDC: 06/05/24 Dates by Current Scan for: (11 weeks/0 days) EDC: 05/31/24 MATERNAL ANATOMY Uterus: 12.6 x 7.9 x 6.0cm Right Ovary: 2.7 x 3.1 x 1.9cm Left Ovary: 3.0 x 2.5 x 1.7cm Post CDS / Adnexa: wnl Presence of free fluid: No Presence of corpus luteal cyst: Yes, 2.3 x 2.1 cm in rt ovary Presence of subchorionic bleed: Heterogeneous echogenic area seen outside the gestational sac in the region of the lower uterine segment measuring 5.3 x 3.2 x 5.5 cm, of uncertain etiology. GESTATION / SURVEY CRL: 4.06cm (11 weeks/0 days) MSD: Not measured, appears wnl Heart Rate: 166 bpm Rhythm: Normal IUP: Viable IUP Date of LMP: 09/06/23 Beta HcG (if available): 56431.0 on 10/20/23 IMPRESSION: 1. Single, live IUP measuring 11 weeks 0 days, ZULLY 05/31/2024 by this exam. 2. Heterogeneous echogenic area seen outside the gestational sac in the region of the lower uterine segment. Likely considerations include hematoma, myometrial contraction, fibroid.
[2023-11-10 22:53] LABS: Basophils # (A) 0.1 k/uL (0-0.2); Basophils % (A) 1 %; Eosinophils # (A) 0.1 k/uL (0-0.7); Eosinophils % (A) 1 %; HCT 38.3 % (34.0-46.0); HGB 12.3 gm/dL (11.4-16.0); Lymphocytes # (A) 2.9 k/uL (1.0-4.8); Lymphocytes % (A) 33 %; MCH 26.5 pg (25.0-35.0); MCHC 32.2 g/dL (31.0-37.0); MCV 82.4 fL (80.0-100.0); Mean Platelet Volume 7.4; Monocytes # (A) 0.4 k/uL (0-1.0); Monocytes % (A) 4 %; Neutrophils # (A) 5.3 k/uL (1.3-7.7); Neutrophils % (A) 60 %; Platelet Count 274 k/uL (150-450); RBC 4.65 m/uL (3.80-5.40); RDW 14.9 % (11.5-15.5); WBC 8.8 k/uL (3.8-10.6)
[2023-11-10 23:06] LABS: ALT 8 U/L (4-34); African American GFR (CKD) >90 (>60 ml/min/1.73 sqM); Anion Gap 10 mmol/L; Blood Urea Nitrogen 12 mg/dL (7-17); Calcium 9.7 mg/dL (8.4-10.2); Carbon Dioxide 19 mmol/L (22-30); Chloride 107 mmol/L (98-107); Glucose 91 mg/dL (74-99); Non-African American GFR(CKD) >90 (>60 ml/min/1.73 sqM); Sodium 136 mmol/L (137-145); Total Bilirubin 0.9 mg/dL (0.2-1.3)
[2023-11-10 23:26] VITALS: BP 162/92; PULSE 69; RESP 18
[2023-11-10 23:31] LABS: AST 25 U/L (14-36); Albumin 4.3 g/dL (3.5-5.0); Alkaline Phosphatase 58 U/L (38-126); Total Protein 7.3 g/dL (6.3-8.2)
[2023-11-10 23:53] LABS: HCG,Quantitative Serum 61295.6 mIU/mL
== END 2023-11-11 03:07 | disposition home or self-care (01) ==
LOC: EC 19:10
DX: O23.591 Infection of other part of genital tract in pregnancy, first trimester (principal); O99.331 Smoking (tobacco) complicating pregnancy, first trimester; F17.200 Nicotine dependence, unspecified, uncomplicated; Z88.0 Allergy status to penicillin; Z3A.11 11 weeks gestation of pregnancy
CPT/HCPCS: 36415; 76801; 80053; 84702; 85025; 86850; 86900; 86901; 87808; 99284